=== PATIENT | female | born 1970 | race African-American/Black ===

== ENCOUNTER 2019-10-14 11:00 | Outpatient (RCR) | payer OTHER ==
[~2019-10-14 11:00] MED LIST: ASPIRIN E.C. 8181 MG PO; CELEXA40 MG PO; FIORICET 325 MG1 TA1 PO; FORT1000TA; GLUCOPHAGE1000 MG PO; GLUCOPHAGE500 MG/TAB PO; INDERAL LA120 MG PO; LANTUS100 U/ML SC; OMEGA 31000 MG PO; PRAVACHOL 40MG40 MG PO; PRIL40 PO; PRINIVIL40 MG PO; VALTREX 50500 MG/TAB PO; VITAMIN D 1001000 IU PO; WELLBUTRIN SR100 M1 PO
== END 2019-12-04 | disposition home or self-care (01) ==
LOC: WSOT
DX: R20.0 Anesthesia of skin (principal)